=== PATIENT | male | born 1995 | race Caucasian/White ===

== ENCOUNTER 2023-05-24 21:32 | Emergency (ER) | payer OTHER ==
[~2023-05-24] VITALS: Ht 165.1 cm; Wt 74.8 kg
[2023-05-24 21:34] VITALS: BP_SYST 139; PULSE 106; RESP 16; TEMP 97.8; O2SAT 98
[2023-05-24] MEDS: levETIRAcetam 500 MG TABLET PO ONE (21:44)
[2023-05-24 23:33] LABS: BASOPHILS % (AUTO) 0.7 % (0.0-2.0); EOSINOPHILS # (AUTO) 0.1 K/uL (0.0-0.4); EOSINOPHILS % (AUTO) 1.8 % (0.0-4.0); HEMATOCRIT 45.4 % (36-54); HEMOGLOBIN 15.8 g/dL (14.0-18.0); LYMPHOCYTES # (AUTO) 2.9 K/uL (1.0-5.5); LYMPHOCYTES % (AUTO) 42.2 % (20.5-51.5); MEAN CORPUSCULAR HEMOGLOBIN 30 pg (27-31); MEAN CORPUSCULAR HGB CONC 35 % (32-36); MEAN CORPUSCULAR VOLUME 86 fL (79.0-98.0); MONOCYTES # (AUTO) 0.4 K/uL (0.0-1.0); MONOCYTES % (AUTO) 5.7 % (1.7-9.3); NEUTROPHILS # (AUTO) 3.5 K/uL (1.8-7.7); NEUTROPHILS % (AUTO) 49.6 % (40.0-70.0); PLATELET COUNT (AUTO) 267 K/uL (130-430); RED BLOOD CELL COUNT(AUTO) 5.28 MIL/uL (4.2-6.2); RED CELL DISTRIBUTION WIDTH 13.3 % (9.0-15.0)
[2023-05-24 23:38] LABS: CALCIUM 8.8 mg/dL (8.4-11.0); CREATININE 0.9 mg/dL (0.55-1.30); POTASSIUM 4.3 mmol/L (3.5-5.1)
[2023-05-24 23:45] LABS: ALBUMIN 3.9 g/dL (3.4-4.8); TOTAL BILIRUBIN 0.3 mg/dL (0.0-1.0); TOTAL PROTEIN, SERUM 7.2 g/dL (6.4-8.3)
[2023-05-25 00:24] VITALS: BP_SYST 133; PULSE 91; RESP 16; TEMP 97.8; O2SAT 100
== END 2023-05-25 00:24 | disposition home or self-care (01) ==
LOC: SED 21:32
DX: R56.9 Unspecified convulsions (principal); Z79.899 Other long term (current) drug therapy
CPT/HCPCS: 36415; 80053; 82542; 85025; 93005; 99283